=== PATIENT | female | born 1995 ===

== ENCOUNTER 2021-09-07 00:07 | Outpatient (CLI) | payer MEDICAID ==
[2021-09-07] MEDS ORDERED: LACTATED RINGERS 500 ML IV ONE (00:52)
[2021-09-07] MEDS ORDERED: BUTALB/ACETAMINOPHEN/CAFFEINE TAB PO ONE (00:57)
[2021-09-07] MEDS ORDERED: TERBUTALINE 1 MG/1 ML INJ SUB-Q SCH (01:00)
[2021-09-07 01:20] VITALS: BP 117/77
== END 2021-09-07 02:45 | disposition home or self-care (01) ==
LOC: TRG 00:07 → APU 00:10 → TRG 02:45
PROVIDERS: ATTEND Obstetrics & Gynecology
DX: O26.893 Other specified pregnancy related conditions, third trimester (principal); R51.9 Headache, unspecified; R42 Dizziness and giddiness; Z3A.31 31 weeks gestation of pregnancy
CPT/HCPCS: 96372; J3105; J7120; 96360

== ENCOUNTER 2021-09-19 11:03 | Outpatient (CLI) | payer MEDICAID ==
[2021-09-19 11:41] VITALS: BP 111/69
[2021-09-19] MEDS ORDERED: BETAMET ACET/BETAMET NA PH 6 MG/ML INJ 5 ML MDV IM ONE (12:22)
== END 2021-09-19 12:08 | disposition home or self-care (01) ==
LOC: TRG 11:03 → APU 11:05 → TRG 12:08
PROVIDERS: ATTEND Obstetrics & Gynecology
DX: Z34.93 Encounter for supervision of normal pregnancy, unspecified, third trimester (principal); Z3A.33 33 weeks gestation of pregnancy
CPT/HCPCS: 59025; J0702

== ENCOUNTER 2021-09-20 10:49 | Outpatient (CLI) | payer MEDICAID ==
[2021-09-20 11:34] VITALS: BP 109/70
[2021-09-20] MEDS ORDERED: BETAMET ACET/BETAMET NA PH 6 MG/ML INJ 5 ML MDV IM ONE (12:00)
== END 2021-09-20 12:15 | disposition home or self-care (01) ==
LOC: TRG 10:49 → APU 10:50 → TRG 12:15
PROVIDERS: ATTEND Obstetrics & Gynecology
DX: Z34.93 Encounter for supervision of normal pregnancy, unspecified, third trimester (principal); Z3A.33 33 weeks gestation of pregnancy
CPT/HCPCS: 59025; 96372; J0702